=== PATIENT | male | born 1950 | race Caucasian/White ===

== ENCOUNTER 2020-01-08 13:42 | Outpatient (CLI) | payer MEDICARE, SELFPAY ==
--- NOTE | ~2020-01-08 | MR_ITS ---
EXAMINATION: MR lower leg RT wo con DATE: 01/08/2020 15:30 INDICATION: Pain at the posterior distal right lower leg following after something popped in the Ac hilles tendon area. TECHNIQUE: Magnetic resonance imaging (MRI) of the right lower leg was performed without intravenous contrast. A marker was placed over the region of concern. Sequences included axial, sagittal and cor onal T1-weighted FSE and fluid sensitive FSE STIR. COMPARISON: None. FINDINGS: Fusiform thickening of the distal right Achilles tendon with prominent increased signal centrally con sistent with severe tendinosis. There appear to be some discontinuous central fibers consistent with partial-thickness intrasubstance tear but without a clearly defined tear margin. The plantaris tendon remains intact. There is feathery T2 hyperintense muscular edema throughout the gastrocnemius muscle . There appears be a second partially visualized partial-thickness tear along the proximal myotendino us junction of the medial head of the gastrocnemius muscle which can be seen on the sagittal and anabela nal images above the level of the axial images. There is normal signal throughout the remaining muscu lature of the calf. Bone alignment is normal with normal marrow signal throughout. No fracture or pat hologic marrow replacing process. Joint spaces at the ankle and visualized hindfoot appear unremarkab le with no joint effusions. Remaining flexor and extensor tendons at the ankle appear normal. IMPRESSION: 1. Partial thickness tears both proximally along the proximal myotendinous junction of the medial hea d of the gastrocnemius muscle as well as distally at the Achilles tendon. Reviewed, dictated and finalized at location A. IMPRESSION: 1. Partial thickness tears both proximally along the proximal myotendinous junc tion of the medial head of the gastrocnemius muscle as well as distally at the Achilles tendon.
== END 2020-01-08 13:43 | disposition home or self-care (01) ==
PROVIDERS: PCP Internal Medicine; Visit Provider Internal Medicine
DX: S86.811A Strain of other muscle(s) and tendon(s) at lower leg level, right leg, initial encounter (principal); S86.011A Strain of right Achilles tendon, initial encounter; M79.669 Pain in unspecified lower leg
CPT/HCPCS: 73718

== ENCOUNTER → 2020-07-06 00:11 | Outpatient (CLI) | payer MEDICARE, SELFPAY ==
[2020-07-06 19:29] LABS: SARS-CoV-2 RNA PCR Negative
== END ==
PROVIDERS: PCP Internal Medicine; Visit Provider Internal Medicine Gastroenterology
DX: Z01.812 Encounter for preprocedural laboratory examination (principal); Z20.822 Contact with and (suspected) exposure to COVID-19
CPT/HCPCS: C9803; U0003; U0005

== ENCOUNTER 2020-07-09 01:19 | Day surgery (SDC) | payer MEDICARE, SELFPAY ==
[2020-06-25 10:30] VITALS: BMI 26.4
[2020-07-09 10:12] VITALS: BP 132/85; PULSE 70; RESP 18; TEMP 36.4; O2SAT 97; BMI 25.2
[2020-07-09] MEDS: LACTATED RINGERS 1,000 ML 150 ML IV CONT (10:19)
--- NOTE | 2020-07-09 10:49 | WPDGICN ---
GI Consult Note Consult date/time: 07/09/20 10:49 HPI: reason for visit is colonoscopy. This very pleasant gentleman's is seen at the request the primary physician. Impression: Screening colonoscopy. The patient does have a family history of colorectal cancer. He has a remote history of colon polyps. HLD. HTN. Recommendation: Colonoscopy. History: This very pleasant gentleman negative GI review systems. He has remote history of colon polyps and a family history colorectal cancer. He is here for colonoscopy. Physical examination: General: very pleasant patient in no acute distress. HEENT: Head was normocephalic sclerae is clear mouth without masses neck was supple. Heart: Rate rhythm regular without S3 or S4. Lungs: CTA. Abdomen: Soft with no guarding or rigidity. Bowel sounds were active. Neurologic: Cranial nerves 2 through 12 intact. No focal defects. No clonus. Musculoskeletal system: Revealed no joint tenderness or swelling no muscle atrophy. Extremities: Reveal no significant edema. Skin: Warm and dry with normal turgor. Mental status: intact. Patient is alert and oriented. Review of Systems Review of Systems: All systems reviewed & are unremarkable except as noted in HPI and below PMFSH Past Medical History Medical History Arthritis Food allergy Hearing loss High cholesterol Psoriasis Rupture of right Achilles tendon Seasonal allergies Vision abnormalities Surgical History Surgical History History of surgery stomach/bowl Family History Family History Father Acute myocardial infarction, Onset Age: 57 Patient's father is Mother Cerebrovascular accident, Onset Age: 84 Patient's mother is Sibling Family history of malignant neoplasm of cervix, Onset Age: 40 Patient's sister is Social History Social History Smoking status: Never smoker Alcohol intake: current Drinks per week: 2 Substance use type: does not use Living arrangements: with family Gender identity (if verbalized by the patient): Male Spiritual care concerns: No Meds Home Medications and Allergies Home Medications Medication Instructions Recorded Confirmed Type lisinopril 2.5 mg tablet 2.5 mg PO DAILY 03/06/19 06/25/20 History aspirin 81 mg tablet,delayed 81 mg PO DAILY 09/13/19 06/25/20 History release cholecalciferol (vitamin D3) 50 50 mcg PO DAILY 09/13/19 06/25/20 History mcg (2,000 unit) capsule turmeric root extract 500 mg 500 mg PO DAILY 09/13/19 06/25/20 History capsule diclofenac sodium 75 mg See Rx Instructions .ROUTE 03/18/20 06/25/20 Rx tablet,delayed release .COMPLEX #180 tablet ezetimibe [Zetia] 10 mg PO DAILY 06/25/20 06/25/20 History Allergies Allergy/AdvReac Type Severity Reaction Status Date / Time Penicillins Allergy Mild pt does Verified 07/09/20 10:11 not know pneumococcal vaccine AdvReac Mild Other Verified 07/09/20 10:11 [From Prevnar 13 (PF)] Vital Signs Vital Signs - 24 hr 07/09/20 10:12 Temperature 36.4 C L Pulse Rate 70 Respiratory Rate 18 Blood Pressure 132/85 Pulse Oximetry 97
--- NOTE | 2020-07-09 10:54 | WPDANESEPPF ---
Anes - Initial Pre Proc Eval Procedure: Operation Date: 07/09/20 11:00 Proposed Procedures p Screening Colonoscopy - Nicanor Oakley DO Date/Time: 07/09/20 10:54 Surgeon: Nicanor Oakley DO Pre Op Diagnosis: neoplasm screening Patient Data Age: 69 Gender: M Height: 6 ft Weight: 84.4 kg Last Vital Signs Temp 97.5 F L 07/09/20 10:12 Pulse 70 07/09/20 10:12 Resp 18 07/09/20 10:12 BP 132/85 07/09/20 10:12 Pulse Ox 97 07/09/20 10:12 Allergies Allergy/AdvReac Type Severity Reaction Status Date / Time Penicillins Allergy Mild pt does Verified 07/09/20 10:11 not know pneumococcal vaccine AdvReac Mild Other Verified 07/09/20 10:11 [From Prevnar 13 (PF)] Home Medications Medication Instructions Recorded Confirmed Type lisinopril 2.5 mg tablet 2.5 mg PO DAILY 03/06/19 06/25/20 History aspirin 81 mg tablet,delayed 81 mg PO DAILY 09/13/19 06/25/20 History release cholecalciferol (vitamin D3) 50 50 mcg PO DAILY 09/13/19 06/25/20 History mcg (2,000 unit) capsule turmeric root extract 500 mg 500 mg PO DAILY 09/13/19 06/25/20 History capsule diclofenac sodium 75 mg See Rx Instructions .ROUTE 03/18/20 06/25/20 Rx tablet,delayed release .COMPLEX #180 tablet ezetimibe [Zetia] 10 mg PO DAILY 06/25/20 06/25/20 History Patient hx anesthesia problems: none Family hx anesthesia problems: none PMFSH Past Medical History Medical History Arthritis Food allergy Hearing loss High cholesterol Psoriasis Rupture of right Achilles tendon Seasonal allergies Vision abnormalities Surgical History Surgical History History of surgery stomach/bowl Family History Family History Father Acute myocardial infarction, Onset Age: 57 Patient's father is Mother Cerebrovascular accident, Onset Age: 84 Patient's mother is Sibling Family history of malignant neoplasm of cervix, Onset Age: 40 Patient's sister is Social History Social History Smoking status: Never smoker Alcohol intake: current Drinks per week: 2 Substance use type: does not use Living arrangements: with family Gender identity (if verbalized by the patient): Male Spiritual care concerns: No Anes - Eval Final PreProcedure Day of Procedure 07/09/20 10:54 Patient weight: normal Heart: regular rate and rhythm Lungs: clear to auscultation Airway: Mallampati scale class II Neurological: alert and oriented Last oral intake: >/= 8 hours ASA classification: II Anesthetic plan: proceed Anesthesia type and monitoring: general GIVS and standard monitoring Informed Consent: The patient's anesthetic plan and its attendant risks and benefits were discussed with the patient/family/POA. Questions were solicited and answers provided to the satisfaction of the patient/family/POA.
[2020-07-09 11:38] VITALS: BP 117/68; PULSE 61; RESP 13; O2SAT 99
[2020-07-09 11:48] VITALS: BP 125/81; PULSE 65; RESP 18; O2SAT 99
[2020-07-09 11:58] VITALS: BP 135/82; PULSE 57; RESP 19; O2SAT 98
== END 2020-07-09 12:10 | disposition home or self-care (01) ==
PROVIDERS: PCP Internal Medicine; Visit Provider Internal Medicine Gastroenterology
PROC: 0DJD8ZZ Inspection of Lower Intestinal Tract, Via Natural or Artificial Opening Endoscopic (ICD-10-PCS; CPT 45378; principal; 2020-07-09 11:00)
DX: Z12.11 Encounter for screening for malignant neoplasm of colon (principal); D12.6 Benign neoplasm of colon, unspecified; K57.30 Diverticulosis of large intestine without perforation or abscess without bleeding; K63.89 Other specified diseases of intestine; E78.00 Pure hypercholesterolemia, unspecified; L40.9 Psoriasis, unspecified; H91.90 Unspecified hearing loss, unspecified ear; H53.9 Unspecified visual disturbance; Z80.0 Family history of malignant neoplasm of digestive organs; Z86.010 Personal history of colon polyps
CPT/HCPCS: 45385; 88305; C9803; J2704; J7120; U0003; U0005

== ENCOUNTER → 2021-05-17 10:02 | Outpatient (CLI) | payer MEDICARE, SELFPAY ==
--- NOTE | ~2021-05-17 | XR_ITS ---
EXAMINATION: XR hip LT min 2V DATE: 05/17/2021 10:18 INDICATION: Left hip pain. TECHNIQUE: 2 views of left hip were obtained. COMPARISON: None. FINDINGS: Bone alignment is normal. No fracture. There is mild left hip osteoarthritis. IMPRESSION: 1. Mild left hip osteoarthritis. Reviewed, dictated and finalized at location A. INIZER
== END ==
PROVIDERS: PCP Internal Medicine; Visit Provider Internal Medicine
DX: M16.12 Unilateral primary osteoarthritis, left hip (principal)
CPT/HCPCS: 73502

== ENCOUNTER 2021-07-08 13:30 | Outpatient (RCR) | payer MEDICARE, SELFPAY ==
--- NOTE | 2021-06-11 14:02 | PTOPEVAL ---
PHYSICAL THERAPY INITIAL EVALUATION. Thank you for referring Ray Nolasco to [facility].? The patient is scheduled to be seen for therapy? 2x/week for 4 weeks. Please review, sign, date and return this plan of care ALYSIA. I agree with and certify that the following plan of care is medically necessary. Referring Physician Date Attending Provider: Pardeep Steele DO *PT Outpatient Evaluation Start: 06/11/21 Evaluation Information Diagnosis Pain in L hip Onset ~2 months Additional Evaluation Detail Pts Michelle present during evaluation. Subjective Information Pt states he is having some Query Text:As Reported By Patient/ left hip pain. He has had pain Family like this before in the R hip and it can usually be treated with medication but medications is not helping this time. This pain has increased to daily and nothing has seemed to help. Pt states he fell on the ice a few weeks ago and landed on his back, which caused his back to be painful for about a week, he took an Epsom salt bath and this helped his back. He states his fall did not increase his hip pain. He states the pain in his L hip used to be centralized, but now shoots into the lateral calf, he feeling burning on the dorsum of his foot, and his great toe feels numb. The distance he can walk is limited by his pain and numbness. Pain Assessment Left Hip(s) Reported Pain Level 4 Pain Description Burning,Sharp,Stabbing Pain Radiation Left Leg Pain Frequency Acute,Intermittent Lowest Pain Intensity 2 Greatest Pain Intensity 10 Pain Aggravating Factors Prolonged Position,Walking, Weight Bearing/Standing Cervical and Lumbar ROM Lumbar Flexion Active Ankle Lumbar Extension (0-40) 10 Lateral Flexion Feels a pinch in the L hip Query Text:Active Hands to: during lateral flexion to the L. 2in above lateral knee joint line on L. R lateral
--- NOTE | 2021-07-08 14:28 | PTOPEVAL ---
PHYSICAL THERAPY PROGRESS REPORT AND DISCHARGE NOTE. Thank you for referring Ray Nolasco to [facility].? The patient is to be discharged from skilled physical therapy services at this time. Please review, sign, date and return this plan of care ALYSIA. I agree with and certify that the following plan of care is medically necessary. Referring Physician Date Attending Provider: Pardeep Steele, DO Evaluation Information Diagnosis Pain in L hip Subjective Information Pt states his pain is a less Query Text:As Reported By Patient/ intense now, and happens way Family less often. Pt reports he can stand as long as he wants, he just needs to sit for 5-10 minutes every hour to rest. Pain Assessment Left Hip(s) Reported Pain Level 0 Greatest Pain Intensity 7 Lumbar ROM Lumbar Flexion Active Ankle Lumbar Extension (0-40) 20 Lumbar Lateral Flexion Right (0-40) 30 Lateral Flexion able to reach lateral knee Query Text:Active Hands to: joint bilaterally Lateral Rotation Right (0-45) 45 active Lateral Rotation Left (0-45) 45 active Lumbar ROM WNL Normal Lumbar Segmental Motion Yes Lumbar Comments Pt reports motions feeling equal on both sides Lower Extremity Range of Motion General Lower Extremity Range of Motion WFL/Left,WFL/Right Gross Lower Extremity Range of Motion limited hip ER/IR bilaterally Comments B hips - unable to reach terminal hip extension Lower Extremity Muscle Strength Testing Gross Lower Extremity Strength B LE grossly 5/5 L hip flexion 4+/5 L hip abduction 4/5 Muscle Length Testing Two-Joint Hip Flexor Shortened Muscles Short (R) Iliopsoas,Short (L) Iliopsoas,Short (R) Rectus Femoris,Short (L) Rectus Femoris Gastrocnemius Length (L) Mild Tightness Muscle Length Testing Comments Prone knee flexion, B 30 deg of motion before anterior hip raises from mat Palpation Assessment Palpation None noted. Observed squat mechanics, no deviations PT Clinical Summary Farhat presents to therapy today for his progress report following 8 visits to treat his low back and hip pain. Today he demonstrates pain free lumbar ROM, improved LE strength, and improved postural awareness. He
== END 2021-07-09 11:34 | disposition home or self-care (01) ==
LOC: ANHPT 13:30
PROVIDERS: PCP Internal Medicine; Visit Provider Internal Medicine
DX: M25.552 Pain in left hip (principal)
CPT/HCPCS: 97110; 97112; 97140; 97161; 97530

== ENCOUNTER 2021-10-29 10:44 | Outpatient (CLI) | payer MEDICARE, SELFPAY ==
--- NOTE | ~2021-10-29 | XR_ITS ---
MODIFIED ESOPHAGRAM HISTORY: Dysphagia. TECHNIQUE: Modified barium esophagram was performed on 10/29/2021. I administered fluoroscopy and perf ormed the exam with speech pathologist. Patient was seated for lateral fluoroscopic imaging for lucio stion of thin liquids, pudding, solids and quantified amounts, followed by thin liquids in uncontroll ed amounts. This was recorded on tape. A single fluoroscopic spot image was also recorded. The DAP fo r this procedure was 1.354 Gycm2. The amount of fluoroscopy time used during this procedure was 2.0 m inutes. FINDINGS: Oral stage: Adequate function. Pharyngeal stage: Pharyngeal dysphagia with reduced laryngeal elevation and tongue base retraction. T here is residue in the vallecula and piriform sinus. There was some laryngeal penetration which clear ed with cough and without aspiration. Anterior endplate osteophytes at C5-C6 which exerts mild mass e ffect upon the posterior wall of the hypopharynx. Cervical/esophageal stage: Adequate function. IMPRESSION: Pharyngeal dysphagia with small amount of laryngeal penetration without aspiration. Plea se correlate with speech pathologist findings and specific feeding recommendations. Reviewed, dictated and finalized at location A. IMPRESSION: Pharyngeal dysphagia with small amount of laryngeal penetration wit hout aspiration. Please correlate with speech pathologist findings and specifi c feeding recommendations.
--- NOTE | 2021-11-01 07:10 | STOPEVAL ---
MODIFIED BARIUM SWALLOW EVALUATION (completed 10-29-21) Thank you for referring Ray Nolasco to [facility].? T Attending Provider: Pardeep Steele DO Modified Barium Swallow Evaluation Recent Swallowing History Reports Dysphagia Yes: occasional choking on bread; needs water to wash it down Onset of Dysphagia 1-2 years Other Factors Impacting Dysphagia None History of Pneumonia No Reported Difficult Consistencies Solids Intake Method Prior to Swallow Oral Evaluation Diet Prior to Swallow Evaluation Regular, Level 7 Liquid Consistency Prior to Swallow Thin (0) Evaluation Consistency Thin Uncontrolled 1 Other Amount cup and straw Oral Preparatory Symptoms None Oral Phase Symptoms None Pharyngeal Phase Symptoms None Severity of Vallecular Residue None - 0% No Residue Severity of Pyriform Sinus Residue None - 0% No Residue 8 Point Laryngeal Penetration-Aspiration Material Does Not Enter Airway Scale Solid Consistency Method of Presentation Spoon Oral Preparatory Symptoms None Oral Phase Symptoms None Pharyngeal Phase Symptoms Residue/Pyriform Sinus Severity of Vallecular Residue Trace - 1-5 % Trace Coating of the Mucosa Severity of Pyriform Sinus Residue Moderate - 25-50 % Up Wall to Half Full 8 Point Laryngeal Penetration-Aspiration Material Does Not Enter Airway Scale Pharyngeal Phase Comments with extra dry swallows and alternating liquids and solids , pt was able to clear pyriform sinus residual. Mixed Consistency Other Amount with use of chin tuck positioning Method of Presentation Spoon Oral Preparatory Symptoms None Oral Phase Symptoms None Pharyngeal Phase Symptoms Bony Protuberance,Residue/ Pyriform Sinus Severity of Vallecular Residue Trace - 1-5 % Trace Coating of the Mucosa 8 Point Laryngeal Penetration-Aspiration Material Does Not Enter Airway Scale Pharyngeal Phase Comments coating on backside of epiglottis but no laryngeal penetration was noted. Cervical/Esophageal Symptoms None Pureed Consistency Method of Presentation Spoon Oral Preparatory Symptoms None Oral Phase Symptoms None Pharyngeal Phase Symptoms Bony Protuberance,Reduced Lingual Pressure,Residue in Valleculae,Residue/Pyriform
== END 2021-10-29 10:45 | disposition home or self-care (01) ==
LOC: ANHIMG 10:45
PROVIDERS: PCP Internal Medicine; Visit Provider Internal Medicine
DX: R13.10 Dysphagia, unspecified (principal)
CPT/HCPCS: 92611

== ENCOUNTER 2022-01-31 11:06 | Outpatient (RCR) | payer MEDICARE, SELFPAY ==
--- NOTE | 2022-01-31 12:20 | STOPEVDC ---
Assessment and note entered by Sharda Heaton FINISHED CLOTH CHECKER Thank you for referring Ray Nolasco to [facility].? An evaluation has been completed. No further treatment is needed. Evaluation Information Assessment Status Evaluation Reported Pain Level Pain Score 0: Self Report Assessment ST Clinical Summary aFrhat Nolasco is a 71 year old male who has been referred to our clinic with swallowing deficits that were observed in a Modified Barium Swallow Study (MBSS). Patient reports having difficulty consuming IDDSI 7 Regular solid consistency for approximately 1-2 years and specifically has choking episodes with more dense and dry consistencies such as whole-wheat bread. Patient completed MBSS on 10/29/21 with no aspiration or laryngeal penetration. However, patient demonstrated deficits in base of tongue retraction, laryngeal elevation, pharyngeal squeeze leading to mild-moderate residue in the pyriform sinuses, specifically in IDDSI Level 7 consistencies. It was also observed that patient had a cervical osteophyte at the level of the pyriform sinuses that was possibly impacting the ability for bolus to easily pass through to the esophagus. Patient was recommended to stay on an IDDSI 7 Regular and IDDSI 0 Thin diet, but to be referred for brief ST services to reduce pyriform sinus residue. Patient was educated on each exercise targeting pharyngeal and base of tongue strength and laryngeal elevation. Patient was able to complete each exercise with minimal verbal/visual cues following instruction. Patient was also educated on compensatory safe swallow strategies to use in order to reduce occurrences of choking episodes. Recommend patient to d/c from skilled ST with use of home exercise program to improve safety and comfort of swallow. Patient has agreed to use home program and call with any questions. Patient will reach out to ordering physician if choking episodes do not improve. Thank you for this referral. Plan of Care Interventions Treatment of Swallowing D ST Services Indicated No
== END 2022-02-02 09:32 | disposition home or self-care (01) ==
LOC: ANHGOSHST 11:06
PROVIDERS: PCP Internal Medicine; Visit Provider Internal Medicine
DX: R13.10 Dysphagia, unspecified (principal)
CPT/HCPCS: 92526; 92610